=== PATIENT | female | born 1995 | race Caucasian/White ===

== ENCOUNTER 2022-05-05 11:19 | Emergency (ER) | payer BC ==
[~2022-05-05] VITALS: Ht 165.1 cm; Wt 61.2 kg
[2022-05-05] MEDS ORDERED: PROZAC10 MG PO (11:32)
== END 2022-05-05 16:10 | disposition home or self-care (01) ==
LOC: ED 11:19
DX: G43.909 Migraine, unspecified, not intractable, without status migrainosus (principal); Z79.899 Other long term (current) drug therapy
CPT/HCPCS: 96374; 96375; 99283-25; J0780; J1100; J1200; J1885; J3475; J7030

== ENCOUNTER 2022-05-09 20:24 | Emergency (ER) | payer BC ==
[~2022-05-09] VITALS: Ht 165.1 cm; Wt 61.2 kg
[~2022-05-09 20:24] MED LIST: PROZAC10 MG PO
--- OUTSIDE RECORDS SUMMARY | 2022-05-09 20:32 | XMS ---
PreManage Notification: JAYDON HARP Security Management Specialist Events No recent Security Events currently on file CRITERIA MET - [facility] - 2 Visits in 30 Days CARE PROVIDERS There are no care providers on record at this time. Richard has no Care Guidelines for this patient. [place] VISIT COUNT (12 MO.) [address] TOTAL 3 NOTE: Visits indicate total known visits. ED/[facility] VISIT TRACKING (12 MO.) 05/09/2022 20:25 [facility] [place] TYPE: Emergency COMPLAINT: - HEADACHE 05/05/2022 11:[address] [facility] [place] TYPE: Emergency COMPLAINT: - HEADACHE DIAGNOSES: - Headache, unspecified - Migraine, unspecified, not intractable, without status migrainosus - Other long term care pharmacist (current) drug therapy 06/07/2021 10:04 [facility] TYPE: Emergency DIAGNOSES: - Allergic Reaction - Other adverse food reactions, not elsewhere classified, initial encounter INPATIENT VISIT TRACKING (12 MO.) No inpatient visits to display in this time frame [email or web address]
== END 2022-05-09 23:18 | disposition home or self-care (01) ==
LOC: ED 20:24
DX: R51.9 Headache, unspecified (principal); Z79.899 Other long term (current) drug therapy
CPT/HCPCS: 70450; 96361; 96374; 96375; 99284-25; J1200; J1885; J2765; J7030

== ENCOUNTER → 2024-11-01 | Day surgery (SDC) | payer OTHER ==
[2024-10-27 14:44] VITALS: BP 124/78
[~2024-11-01] VITALS: Ht 165.1 cm; Wt 64.5 kg
[~2024-11-01] MED LIST changes: +ACETAMINOPHEN 1,000 MG/100 ML VIAL ONE; +CEFAZOLIN SODIUM 2 GM/20 ML SYR IV ONE; +CEFAZOLIN SODIUM 2 GM/20 ML SYR IV SCH; +DEXAMETHASONE SOD PHOS 4 MG/ML VIAL ONE; +FAMOTIDINE 20 MG TAB PO PRN; +FLUORESCEIN SODIUM 500 MG/5 ML ML ONE; +GLYCOPYRROLATE 1 MG/5 ML MDV ONE; +IBLOOD GLUCOSE TEST STRIP 1 EA TEST VI PRN; +KETOROLAC TROMETHAMINE 30 MG/ML VIAL ONE; +LACTATED RINGER'S 1,000 ML IV ONE; +LACTATED RINGER'S 1,000 ML IV SCH; +LIDOCAINE HCL 1% 30 ML SDV ONE; +LIDOCAINE HCL 1% 5 ML SDV INJ ONE; +LIDOCAINE HCL 2% 5 ML SDV ONE; +MAGNESIUM HYDROXIDE/AL HYDROX 30 ML CUP PO PRN; +METOCLOPRAMIDE HCL 10 MG/2 ML SDV IV PRN; +MIDAZOLAM HCL 2 MG/2 ML VIAL ONE; +MORPHINE SULFATE 10 MG/ML VIAL IV PRN; +NALOXONE HCL 0.4 MG SYR IV PRN; +OXYCODONE/APAP 5/325 TAB PO PRN; +PREDNISONE20 MG PO; +PRISTIQ ER50 MG PO; +ROCURONIUM BROMIDE 50 MG/5 ML SYR ONE; +SEVOFLURANE 250 ML BTL INH ONE; +SEVOFLURANE 250 ML BTL ONE; +SIMETHICONE 125 MG TABLET CHEWABLE PO PRN; +SIMETHICONE 125 MG TABLET CHEWABLE PO SCH; +SUGAMMADEX SODIUM 200 MG/2 ML ML ONE; +bisacodyL 10 MG SUPP PR PRN; +dexmedeTOMIDine HCl 200 MCG/2 ML VIAL ONE; +fentaNYL citrate 100 MCG/2 ML VIAL IV PRN; +fentaNYL citrate 100 MCG/2 ML VIAL ONE; +fentaNYL citrate 50 MCG/ML SDV IV PRN; +fentaNYL citrate 50 MCG/ML SDV ONE; +ondansetron HCL 4 MG/2 ML VIAL IV ONE; +ondansetron HCL 4 MG/2 ML VIAL IV PRN; +ondansetron HCL 4 MG/2 ML VIAL ONE; +propofoL 200 MG/20 ML VIAL ONE
--- NOTE | ~2024-11-01 | OR ---
[facility] [address], [place] [address] Draft DATE OF OPERATION: 11/01/2024 SURGEON: Valeri Mcconnell DO PREOPERATIVE DIAGNOSES: 1. Abnormal uterine bleeding. 2. Dysmenorrhea. POSTOPERATIVE DIAGNOSES: 1. Abnormal uterine bleeding. 2. Dysmenorrhea. PROCEDURES PERFORMED: 1. Total laparoscopic hysterectomy. 2. Bilateral salpingectomy. 3. Cystoscopy. ANESTHESIA: General. ESTIMATED BLOOD LOSS: 25 mL. COMPLICATIONS: None. SPECIMENS: Uterus, cervix and bilateral tubes. FINDINGS: Normal external genitalia with normal clitoris, urethral meatus, bilateral Livingston's, and Bartholin's glands. Normal vagina and cervix. On laparoscopy, normal liver, gallbladder, uterus, tubes, and ovaries. Excellent hemostasis and apical support at the end of the procedure. On cystoscopy, normal bladder with bilateral ureteral jets. INDICATIONS FOR THE PROCEDURE: Mrs. López is a pleasant 29-year-old G2 female with long history of dysmenorrhea and abnormal bleeding that has failed conservative management. She has and migraines with aura. The patient was consented for treatment with total laparoscopic hysterectomy, bilateral salpingectomy, and cystoscopy. Risks, benefits, and PATIENT NAME: JAYDON LÓPEZ OPERATIVE REPORT DATE OF : [birth year] REPORT #: [id number] PHYSICIAN: VALERI MCCONNELL (PERLITA) DO PCP: SHARATH MCCARTHY PA-C REPORT IS CONFIDENTIAL AND NOT TO BE RELEASED WITHOUT AUTHORIZATION [facility] [address], [place] [address] Draft alternatives were discussed in detail with the patient. The patient understands and wished to proceed with the procedure. DESCRIPTION OF PROCEDURE: The patient was taken to the OR where time-out was performed to confirm correct patient and correct procedure. General anesthesia was adequately established. The patient was prepped and draped in the dorsal lithotomy position with feet in Yellofin stirrups. ICPs were on and running. The patient received Ancef 2 g preoperatively per SCIP protocol. Heparin was not indicated . A Cohen catheter was inserted. A weighted speculum was placed in the vagina and the anterior lip of the cervix was grasped with an Allis clamp. The cervix was gently dilated using Hegar dilators and the VCare uterine manipulator was placed without difficulty. Surgeon's gloves were changed and attention was turned to the abdomen. Approximately 1 to 2 cm below the umbilicus, the skin was infiltrated with 0.25% Marcaine with epinephrine and a curvilinear incision was made using a surgical scalpel. Dissection was carried down to the fascia. The fascia was grasped with hemostats, elevated, and entered sharply. Stay sutures of 0 Vicryl were placed in the superior and inferior edges of the fascial incision. The peritoneum was then entered bluntly and Miranda operative port was placed without difficulty. Pneumoperitoneum was established without difficulty. An 8 mm expanding port was placed in the right lower quadrant and a 5 mm assist port was placed in the left lower quadrant under direct visualization without complication. Survey of the abdomen and pelvis was performed, which was normal. Attention was turned to hysterectomy. The left fallopian tube was grasped at the fimbriated end, elevated and divided along the mesosalpinx to the cornu at which point it was amputated. The left uteroovarian ligament was fulgurated and divided and the round ligament was fulgurated and divided. The leaves of the broad ligament on the left were divided from the midportion of the round to the edge of the vaginal cup anteriorly and across the anterior edge of the vaginal cup. The posterior leaf was divided from the midportion of the round to the uterosacral ligament and posteriorly across the posterior cul-de-sac at edge of the vaginal cup. The uterine vessels were identified, fulgurated and divided with excellent hemostasis. The process was repeated on the right without difficulty including division of the fallopian tube along the mesosalpinx, fulguration, division of the utero-ovarian ligament, the round ligament and the leaves of the broad ligament. The right uterine vessels were identified, fulgurated and divided without difficulty. Hysterotomy was performed using Sonicision device and the uterus and cervix were delivered through the vagina and sent to pathology along with fallopian tubes for further evaluation. Pneumoperitoneum was reestablished by placing a wet lap inside of a surgical glove. Colpotomy was made hemostatic and was repaired using 3-0 barbed suture with the Endo-stitch device. Excellent hemostasis and apical support was appreciated. The pelvis was irrigated and again found to be hemostatic. No endometriosis or other pelvic pathology was appreciated. Pneumoperitoneum was reduced. Trocars were removed and infraumbilical fascia was reapproximated using 0 Vicryl in a running nonlocked PATIENT NAME: JAYDON LÓPEZ OPERATIVE REPORT DATE OF : [birth year] REPORT #: [id number] PHYSICIAN: VALERI MCCONNELL DO (JD) PCP: SHARATH MCCARTHY PA-C REPORT IS CONFIDENTIAL AND NOT TO BE RELEASED WITHOUT AUTHORIZATION [place] [id number] Draft manner. Stay sutures of the superior and inferior edge of the fascial incision were plicated. Skin was reapproximated using 3-0 Vicryl Rapide. Attention was then turned to cystoscopy. The Cohen catheter was removed and a 70-degree cystoscope was placed in the urethral meatus and advanced under direct visualization of the bladder. Normal bladder with bilateral ureteral jets was appreciated. The bladder was drained. Cohen catheter was reinserted. The patient was taken to PACU in good and stable condition. Sponge, needle, and instrument counts correct x2 at the end of the procedure. DO LISSET [place]/MODL /[id number] Copies: ~ PATIENT NAME: JAYDON LÓPEZ OPERATIVE REPORT DATE OF : [birth year] REPORT #: [id number] PHYSICIAN: VALERI MCCONNELL DO (JD) PCP: SHARATH MCCARTHY PA-C REPORT IS CONFIDENTIAL AND NOT TO BE RELEASED WITHOUT AUTHORIZATION
[2024-11-01 06:05] VITALS: BP 114/65
--- NOTE | 2024-11-01 06:30 | NUR ---
LE: THIS RN IN ROOM FOR IV START. PT EDUCATION GIVEN ON LIDOCAINE USED FOR IV STARTS. LIDOCAINE PLACED AND DURING THE ATTEMPT FOR IV PLACEMENT PT LOSS CONSCIOUSNESS, PT EYES ROLLED BACK AND PALENESS NOTED. HOB DECREASED AND THIS RN TRYING STABILIZE IV START, IV UNSUCCESSFUL. PT WAKES WITHIN 10-15 SECONDS AND ASKED WHAT HAPPEN. PT REORIENTED AND PT REPORTS SHE HAS A HISTORY OF THIS HAPPENING WITH LAB DRAWS. PT DIAPHORETIC AND COOL WASH CLOTH TO FOREHEAD. LILY RN AT BEDSIDE WITH THIS RN. PLAN TO TRY ANOTHER IV AFTER PT RECOVERS.
--- NOTE | 2024-11-01 07:45 | NUR ---
0745-PT DOING WELL. NO OTHER NEEDS AT THIS TIME. CALL LIGHT WITHIN REACH. AT BED SIDE.
--- NOTE | 2024-11-01 08:54 | NUR ---
PT UP TO RESTROOM. NO OTHER NEEDS AT THIS TIME. AT BEDSIDE. CALL LIGHT WITHIN REACH.
--- NOTE | 2024-11-01 09:45 | NUR ---
0945-PT UPDATED ON SURGERY TIME. NO OTHER NEEDS AT THIS TIME. CALL LIGHT WITHIN REACH. AT BEDSIDE.
--- NOTE | 2024-11-01 13:05 | NUR ---
11/01/24 1305 Erica,Lore 1221 PT ARRIVED TO PACU ON 6L VIA MASK AND ORAL AIRWAY IN PLACE. PT SWALLOWING AND CHIN LIFTED USED OFF AND ON. RESP EVEN AND UNLABORED. 1226 PT REACTIVE TO TACTILE STIMULI AND ABLE TO FOLLOW COMMANDS TO OPEN HER MOUTH, ORAL AIRWAY REMOVED. PT EYES REMAIN CLOSED. 1232 PT WAKES AND STARTS REACHING FOR HER FACE, O2 REMOVED. PT DENIES PAIN AND NAUSEA. PT REORIENTED TO PACU. PT COUGHED AND ENCOURAGED TO DO SO WITH DEEP BREATHING. PT EASILY FALLS BACK TO SLEEP. 1237 RESP SHALLOW AND O2 TO MID TO LOW 80S. PT WOKE TO VERBAL STIMULI AND DEEP BREATHING ENCOURAGED. O2 SLOWLY INCREASED TO LOW 90S. HOB INCREASED SLIGHTLY. 1239 O2 SAT 90% AND SHALLOW, 2L NC PLACED. O2 REMAINS LOW TO MID 90S. 1245 PT REPORTS CRAMPING PAIN 05/02, PLAN OF DISCUSSED. 1301 PAIN MEDICATION GIVEN, PT WAKES EASILY AND O2 HIGH 90S TO 100% ON 2L NC. PT RESTING WITH EYES CLOSED.
[2024-11-01 13:33] VITALS: BP 122/82
--- NOTE | 2024-11-01 13:49 | NUR ---
1335-PT BACK TO ROOM FROM PACU ON . RECEIVED REPORT FROM MICHAEL CHUNG. PT IS AWAKE. PT CURRENTLY HAVE N/V. RATES PAIN 4/10 AND THIS IS TOLERABLE FOR HER. 1340-N/V HAS STOPPED. WOULD LIKE SOME CRACKERS. WATER AT BEDSIDE. WARM BLANKET PROVIDED. NO OHTER NEEDS AT THIS TIME. AT BEDSIDE. CALL LIGHT WITHIN REACH.
[2024-11-01 14:33] VITALS: BP 113/76
--- NOTE | 2024-11-01 14:33 | NUR ---
1433-PT LAYING IN BED. RESP EVEN AND UNLABORED. DENIES NAUSEA. RATES PAIN 3/. PT TAKING SIPS OF WATER. NO OTHER NEEDS AT THIS TIME. CALL LIGHT WITHIN REACH. AT BEDSIDE.
--- NOTE | 2024-11-01 15:30 | NUR ---
1530-PT UP TO SIDE OF BED. DENIES NAUSEA. PT AMBULATES TO RESTROOM. WHILE STANDING IN RESTROOM PT STATES "I NEED TO SIT DOWN". 1532-PT AMBULATES BACK TO BED AND SITS DOWN. EMESIS BAG GIVEN TO PT. PT HAS 1 EPISODE OF N/V. 1534-PT LAYS DOWN. WARM BLANKET PROVIDED. RATES PAIN 3/10. WOULD LIKE MEDICATION FOR N/V. CALL LIGHT WITHIN REACH.
[2024-11-01 15:34] VITALS: BP 117/73
--- NOTE | 2024-11-01 16:25 | NUR ---
1549-REGLAN GIVEN PER EMAR. PT LAYING IN BED WITH EYES CLOSED. NO OTHER NEEDS AT THIS TIME. CALL LIGHT WITHIN REACH. AT BEDSIDE.
[2024-11-01 16:41] VITALS: BP 114/79
--- NOTE | 2024-11-01 17:22 | NUR ---
1641-PT SITTING UP IN BED. RESP EVEN AND UNLABORED. RATES PAIN 3/10 AND THIS IS TOLERABLE AT THIS TIME. 1645-PT AMBULATES TO BATHROOM. PT VOID ABOUT 75ML OF YELLOW URINE. 1647-PT AMBULATES BACK TO BED AND SITTING AT BEDSIDE. 1655-PT MAY DISCHARGE HOME PER DR. CUELLAR. 1700-PATIENT WILL GET DRESSED. IN ROOM.
--- NOTE | 2024-11-01 17:26 | NUR ---
1715-WENT OVER DISCHARGE INSTRUCTIONS WITH PT AND . ALL QUESTIONS ANSWERED. WENT OVER POST OF MEDICATIONS. PT AMBULATES TO WHEELCHAIR AND RIDE PROVIDED TO FRONT OF HOSPITAL WHERE WAS WAITING WITH THE CAR.
--- NOTE | 2024-11-03 11:11 | PATH ---
[facility] [address], [place] [address] Signed SPECIMEN(S): A UTERUS, CERVIX, BILATERAL TUBES SPECIMEN SOURCE: A. UTERUS, CERVIX, BILATERAL TUBES CLINICAL HISTORY: AUB, dysmenorrhea, PMDD FINAL PATHOLOGIC DIAGNOSIS: Uterus with forward to secretory phase, hysterectomy with bilateral salpingectomy: - Proliferative phase endometrium; no hyperplasia or neoplasia identified - Cervix with no significant pathologic changes - Bilateral fallopian tubes with no significant pathologic changes BRP MICROSCOPIC EXAMINATION: Histologic sections of all submitted blocks are examined by light microscopy. These findings, together with the gross examination, support the pathologic diagnosis. GROSS DESCRIPTION: The specimen, labeled and designated "Angle López, per requisition cervix, uterus, bilateral fallopian tubes," is received in formalin and consists of a 103 g, 8.6 cm fundus to cervix, 6.2 cm cornu to cornu, 4.1 cm anterior to posterior uterus with detached bilateral fallopian tubes. The ovaries are absent. The serosal surface is bender-pink and smooth. The attached cervix measures 3.5 x 3.2 cm and has a 1.2 cm slitlike os. The endometrium measures 4.8 x 1.7 cm and has a bender-pink endometrium averaging 0.2 cm in thickness. The myometrium averages 1.7 cm in thickness is bender-pink and trabecular. There are no masses or polyps present. The first arbitrarily designated fallopian tube measures 6.7 x 0.9 x 0.8 cm and has a attached fimbriated end. The serosal surface is pink-purple and smooth with no apparent paratubal cyst. The second arbitrarily designated fallopian tube measures 5.4 x 1 x 0.6 cm and has attached fimbriated end. The serosal surface is pink-purple and smooth with multiple paratubal cysts averaging 0.2 cm in greatest dimension. The specimens are serially sectioned revealing a pinpoint lumen. Acid Conditioning Worker sections are submitted as follows: PATIENT NAME: JAYDON LÓPEZ PATHOLOGY DATE OF : [birth year] REPORT #: [id number] PHYSICIAN: MARCELLUS GARCIA PCP: SHARATH MCCARTHY PA-C REPORT IS CONFIDENTIAL AND NOT TO BE RELEASED WITHOUT AUTHORIZATION [facility] [address], [place] [address] Signed Cassette Summary: (A1) anterior and posterior cervix (A2) anterior and posterior endomyometrium (A3) first fallopian tube, fimbriated ends totally embedded (A4) second fallopian tube, fimbriated ends totally embedded AA (under the direct supervision of a pathologist) The Gross Description was prepared using a voice recognition system. The report was reviewed for accuracy; however, sound-alike word errors, addition and/or deletions may occur. If there is any question about this report, please contact Client Services. ADDITIONAL NOTES: Immunohistochemical and/or in situ hybridization studies if performed in this case included appropriate positive controls that reacted as expected. This test was developed and its performance characteristics determined by [facility]. It has not been cleared or approved by the U.S. Food and Drug Administration. The FDA has determined that such clearance or approval is not necessary. This test is used for clinical purposes. It should not be regarded as investigational or for research. [facility] is certified under the Clinical Laboratory Improvement Amendments of 1988 (CLIA) as qualified to perform high complexity clinical laboratory testing. PERFORMING LABORATORY: Technical component was performed by [facility], [address] [place] [id number] (CLIA# [id number]). Professional interpretation was performed by [facility], [address] [address] (CLIA# [id number]). Diagnostician: Dino Cuevas MD Pathologist Electronically Signed 11/03/2024 Copies: ~ PATIENT NAME: JAYDON LÓPEZ PATHOLOGY DATE OF : [birth year] REPORT #: [id number] PHYSICIAN: MARCELLUS GARCIA PCP: SHARATH MCCARTHY PA-C REPORT IS CONFIDENTIAL AND NOT TO BE RELEASED WITHOUT AUTHORIZATION
== END ==
LOC: OPS 05:57 → DS 09:00 → OPS 09:30
PROVIDERS: ATTEND Obstetrics & Gynecology
PROC: 0UT74ZZ Resection of Bilateral Fallopian Tubes, Percutaneous Endoscopic Approach (ICD-10-PCS; 2024-11-01)
PROC: 0UT94ZZ Resection of Uterus, Percutaneous Endoscopic Approach (ICD-10-PCS; principal; 2024-11-01 07:30)
DX: N93.9 Abnormal uterine and vaginal bleeding, unspecified (principal); N94.6 Dysmenorrhea, unspecified; F32.81 Premenstrual dysphoric disorder; G43.109 Migraine with aura, not intractable, without status migrainosus; Z79.899 Other long term (current) drug therapy; Z97.5 Presence of (intrauterine) contraceptive device
CPT/HCPCS: 00840; J0131; J0690; J1100; J1885; J2003; J2250; J2405; J2704; J2765; J3010; J3490; J7121